=== PATIENT | female | born 1930 | race Caucasian/White ===

== ENCOUNTER 2020-09-10 01:54 | Inpatient (IN) | payer MEDICARE ==
[~2020-09-10] VITALS: Ht 157.5 cm; Wt 69.6 kg
[2020-09-10 02:20] LABS: MEAN CELL VOLUME 84 fl (80.0-100.0); MEAN CORPUSCULAR HGB CONC 31 g/dl (33.0-37.0); MEAN PLATELET VOLUME 10.4 fl (7.4-10.4); PLATELET COUNT 484 K/mm3 (130-400); RED BLOOD COUNT 3.66 M/mm3 (4.10-5.30); REDCELL DISTRIBUTION WIDTH-CV 14.4 % (11.5-14.5)
[2020-09-10 02:30] LABS: ALBUMIN 3.5 gm/dL (3.5-5.0); BILIRUBIN,TOTAL 0.3 mg/dL (0.0-1.0); CALCIUM 8.6 mg/dL (8.4-10.2); CREATININE, serum 2.62 (0.52-1.25)
[2020-09-10 02:31] LABS: HEMATOCRIT 30.9 % (37.0-47.0); HEMOGLOBIN 9.6 g/dl (12.5-16.0); MEAN CORPUSCULAR HEMOGLOBIN 26 pg (27.0-31.0)
[2020-09-10 02:33] LABS: BAND 2 % (0-10); EOSINOPHIL 4 % (0-4); HYPOCHROMIA 2+; LYMPHOCYTE 11 % (20.0-51.0); NEUTROPHILS 76 % (42.0-75.2); PLATELET ESTIMATE INCREASED (NORMAL)
[2020-09-10 02:50] LABS: PROTHROMBIN TIME 10.8 SECONDS (9.7-12.8)
[2020-09-10 02:56] LABS: COLLECTION METHOD CLEAN CATCH
[2020-09-10 03:03] LABS: PH 7 (5-8); SQUAMOUS EPITHELIAL None Seen /hpf; URINE APPEARANCE Clear; URINE BACTERIA None Seen /hpf; URINE BILIRUBIN Negative (NEGATIVE); URINE BLOOD Negative (NEGATIVE); URINE COLOR Straw; URINE GLUCOSE Negative (NEGATIVE); URINE KETONE Negative (NEGATIVE); URINE LEUKOCYTE ESTERASE Negative (NEGATIVE); URINE NITRATE Negative (NEGATIVE); URINE PROTEIN(semi-quant) 2+ (NEGATIVE); URINE RBC 0-2 /hpf; URINE UROBILINOGEN Negative (NEGATIVE)
[2020-09-10] MEDS ORDERED: ASPIRIN 32325 MG/TA1 PO (03:05)
[2020-09-10] MEDS ORDERED: CALCITRIOL (03:08)
[2020-09-10] MEDS ORDERED: CALCIUM WITH D31 CTB (03:10)
[2020-09-10] MEDS ORDERED: CLARITIN 1010 MG/TAB PO (03:10)
[2020-09-10] MEDS ORDERED: COREG 6.256.25 MG/TA PO (03:20)
[2020-09-10] MEDS ORDERED: VITAMIN B11000 MCG/M IM (03:23)
[2020-09-10] MEDS ORDERED: HCTZ12.5TAB PO (03:24)
[2020-09-10] MEDS ORDERED: NATURAL IRON65 MG PO (03:24)
[2020-09-10] MEDS ORDERED: LEVEMIR100 U/ML SQ ×2 (03:26→03:27)
[2020-09-10] MEDS ORDERED: NEURONTIN100 MG/CAP PO (03:27)
[2020-09-10] MEDS ORDERED: NORVASC 10MG10 MG PO (03:28)
[2020-09-10] MEDS ORDERED: NYAMYC100000 U/G TP (03:29)
[2020-09-10] MEDS ORDERED: PRIL40 PO (03:29)
[2020-09-10] MEDS ORDERED: PRAVACHOL10 MG PO (03:30)
[2020-09-10] MEDS ORDERED: SODIUM BICARBO650 MG PO (03:30)
--- NOTE | 2020-09-10 04:12 | NUR ---
PT ARRIVES TO ROOM VIA CART FROM THE ED. HAS FX LEFT HIP. IS ALERT, ORIENTED X2. HAS IVF TO RIGHT FOREARM, INFUSING WITHOUT PROBLEM. HAS SKIN TEAR AND BRUISE TO RIGHT ARM. PLACED PATRICIA TO RT LEG, SCDS TO BOTH. PLACED ON FALL PRECAUTIONS. ZULUAGA TO BSD WITH YELLOW URINE.
[2020-09-10 04:26] VITALS: BP 167/57; PULSE 66; TEMP 97.4
[2020-09-10 07:15] VITALS: BP 165/59; PULSE 68; TEMP 97.5
--- NOTE | 2020-09-10 09:53 | NUR ---
Patient alert and oriented, answers questions appropriately. See assessment. LLE externally rotated and shortened, pulses palpable, no numbness or tingling. Roman catheter in place to dependent drainage, draining clear yellow urine. No c/o at this time.
[2020-09-10 11:41] LABS: CREATININE, serum 2.39 (0.52-1.25)
[2020-09-10 11:42] LABS: MEAN CELL VOLUME 84 fl (80.0-100.0); MEAN CORPUSCULAR HGB CONC 31 g/dl (33.0-37.0); MEAN PLATELET VOLUME 10.8 fl (7.4-10.4); PLATELET COUNT 389 K/mm3 (130-400); RED BLOOD COUNT 3.38 M/mm3 (4.10-5.30); REDCELL DISTRIBUTION WIDTH-CV 14.4 % (11.5-14.5)
[2020-09-10 11:53] LABS: HEMATOCRIT 28.4 % (37.0-47.0); HEMOGLOBIN 8.8 g/dl (12.5-16.0); MEAN CORPUSCULAR HEMOGLOBIN 26 pg (27.0-31.0)
--- NOTE | 2020-09-10 12:37 | NUR ---
Corporate Learning Consultant met with patient to discuss discharge planning. Patient lives at [facility] in [place] and shares a room with her , Ramez. Patient sees Dr. Dave for primary care and states she uses a walker for ambulation. Patient has two sons, Rico (ph#[phone]) and Maxwell (ph#[phone]). Patient plans to return to [facility] upon discharge. KEYLA contacted Selene at and faxed updates. Selene emailed KEYLA a copy of patient's DPOA- paperwork which designates her sons, Rico and Maxwell. 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 KEYLA contacted patient's son, Rico to review discharge plan. Patient to return to upon discharge.
[2020-09-10 13:32] LABS: CREATININE, serum 2.44 (0.52-1.25)
[2020-09-10 13:38] LABS: POTASSIUM 5.8 mmol/L (3.4-5.0)
[2020-09-10 17:28] VITALS: BP 157/64; PULSE 71; TEMP 98
[2020-09-10 20:39] LABS: CALCIUM 7.9 mg/dL (8.4-10.2); CREATININE, serum 2.34 (0.52-1.25); POTASSIUM 5.4 mmol/L (3.4-5.0)
--- NOTE | 2020-09-10 21:30 | NUR ---
Pt. sitting up in bed at this time. Pt. is A&OX3, assessment complete. IV to lt. forearm patent. Pt.'s blood sugar this evening is 211, concerns for giving insulin d/t pt. being npo at in. SHAYAN Conner notified. Decision to hold insulin made. Also informed Dalila that the pt. potassium was still at 5.4. New order received. Pt. denies pain or other needs, call light within reach.
[2020-09-11] VITALS (13 sets, daily range): BP systolic 139–180; BP diastolic 47–75; PULSE 67–99; TEMP 97.4–98.3
[2020-09-11 07:34] LABS: MEAN CELL VOLUME 87 fl (80.0-100.0); MEAN CORPUSCULAR HGB CONC 30 g/dl (33.0-37.0); MEAN PLATELET VOLUME 10.8 fl (7.4-10.4); PLATELET COUNT 342 K/mm3 (130-400); RED BLOOD COUNT 3.34 M/mm3 (4.10-5.30); REDCELL DISTRIBUTION WIDTH-CV 14.3 % (11.5-14.5)
[2020-09-11 07:52] LABS: ALBUMIN 3.1 gm/dL (3.5-5.0); BILIRUBIN,TOTAL 0.3 mg/dL (0.0-1.0); CALCIUM 8.1 mg/dL (8.4-10.2); CREATININE, serum 2.14 (0.52-1.25); POTASSIUM 4.4 mmol/L (3.4-5.0); TOTAL PROTEIN 5.6 gm/dL (6.4-8.2)
[2020-09-11 08:01] LABS: HEMATOCRIT 28.9 % (37.0-47.0); HEMOGLOBIN 8.7 g/dl (12.5-16.0); MEAN CORPUSCULAR HEMOGLOBIN 26 pg (27.0-31.0)
[2020-09-11 09:30] LABS: BAND 6 % (0-10); EOSINOPHIL 2 % (0-4); LYMPHOCYTE 17 % (20.0-51.0); NEUTROPHILS 64 % (42.0-75.2); OVALOCYTES 1+
--- NOTE | 2020-09-11 10:40 | NUR ---
Pt. is resting in bed. Alert and oriented. O2 running at 2L per nasal cannula. Pt. remains NPO. IV to left forearm no redness noted. D5 1/2NS 1000 infusing at 60 ml/hr. Roman cath. in place pericare completed. SCD's on. Pt. has no complaints of pain.
--- NOTE | 2020-09-11 10:52 | NUR ---
KEYLA returned a call to patient's son, Rico who advised he was looking for an update on patient but was able to speak with RN earlier this morning. Patient to have surgery today, time unknown. KEYLA contacted Selene at [facility] to advise that surgery will be today.
--- NOTE | 2020-09-11 12:12 | NUR ---
Patient returns from surgery at 1200.
--- NOTE | 2020-09-11 12:45 | NUR ---
Patient alert and oriented, answers questions appropriately. See assessment. LLE with pulses palpable, no numbness or tingling. LLE shortened and externally rotated. Roman catheter in place, patent, draining clear yellow urine. No c/o at this time.
--- NOTE | 2020-09-11 14:40 | NUR ---
Patient to surgery with surgical staff at this time.
--- NOTE | 2020-09-11 18:58 | NUR ---
Returns from surgery at 1800. Assessment unchanged except LLE with dressing CDI, pulses palpable. No c/o at this time.
--- NOTE | 2020-09-11 20:30 | NUR ---
PT VERY SLEEPY, ROUSES WHEN NAME CALLED. IS ORIENTED X2 AT THIS TIME. TAKES HS MEDS WITH APPLESAUCE. DENIES PAIN AT THIS TIME. ZULUAGA TO BSD WITH YELLOW URINE. IVF TO LEFT FOREARM, NO REDNESS OR SWELLING NOTED. OXYGEN AT 2L/NC. BULKY DRSG TO LEFT HIP.
[2020-09-12 00:28] VITALS: BP 148/55; PULSE 67; TEMP 97.5
[2020-09-12 04:36] VITALS: BP 140/55; PULSE 71; TEMP 97.5
--- NOTE | 2020-09-12 04:50 | NUR ---
REPOSITIONED IN BED WITH 2 ASSIST. ROLLS WELL WITH MINIMAL COMPLAINT OF PAIN TO LEFT HIP. ZULUAGA PATENT. IVF CONTINUE.
[2020-09-12 06:46] LABS: MEAN CELL VOLUME 88 fl (80.0-100.0); MEAN CORPUSCULAR HGB CONC 30 g/dl (33.0-37.0); MEAN PLATELET VOLUME 10.8 fl (7.4-10.4); PLATELET COUNT 271 K/mm3 (130-400); RED BLOOD COUNT 2.94 M/mm3 (4.10-5.30); REDCELL DISTRIBUTION WIDTH-CV 14.2 % (11.5-14.5)
[2020-09-12 06:47] LABS: HEMATOCRIT 25.9 % (37.0-47.0); HEMOGLOBIN 7.7 g/dl (12.5-16.0); MEAN CORPUSCULAR HEMOGLOBIN 26 pg (27.0-31.0)
[2020-09-12 07:08] LABS: CALCIUM 7.9 mg/dL (8.4-10.2); CREATININE, serum 2.03 (0.52-1.25); POTASSIUM 4.5 mmol/L (3.4-5.0)
--- NOTE | 2020-09-12 07:36 | NUR ---
THIS NURSE SPOKE WITH SHAYAN MARRUFO. PATIENTS BLOOD SUGAR THIS MORNING IS 311. PATIENT HAS D5W RUNNING IV. ORDER TO INT FLUIDS AND ENCOURAGE PO FLUIDS.
[2020-09-12 08:15] VITALS: BP 153/55; PULSE 75; TEMP 98.1
--- NOTE | 2020-09-12 09:14 | NUR ---
Initial visit; Patient thanked Preschool Associate Teacher for visiting her and offering prayer and God's blessings.
[2020-09-12 12:00] VITALS: BP 145/51; PULSE 70; TEMP 97.7
--- NOTE | 2020-09-12 13:18 | NUR ---
SHAYAN WELLS NOTIFIED THAT THE PATIENT IS CONFUSED AND REPORTS SEEING THINGS CRAWLING ON THE CEILING. ORDERS TO CONTINUE TO REORIENT THE PATIENT.
--- NOTE | 2020-09-12 15:29 | NUR ---
Sales Incentive Analyst faxed clinical updates to Selene at [facility] and advised discharge will likely be tomorrow. Selene advised they will require a COVID test prior to admit. KEYLA notified SHAYAN Mack.
[2020-09-12 16:47] VITALS: BP 144/63; PULSE 68; TEMP 97.4
--- NOTE | 2020-09-12 17:31 | NUR ---
UPON ENTRY TO THE ROOM THE PATIENT HAD IV PULLED OUT AND SITTING ON THE BEDSIDE TABLE. PATIENT DENIES PAIN AT THIS TIME. ETHERNET NETWORK ARCHITECT BLADDER SCANNING PATIENT POST-ZULUAGA REMOVAL.
--- NOTE | 2020-09-12 18:00 | NUR ---
HOSPITALIST GAVE THE OKAY TO LEAVE IV OUT. PATIENT TO GO TO SKILLED FACILITY TOMORROW.
--- NOTE | 2020-09-12 18:35 | NUR ---
NURSING STAFF WAS ROUNDING. PATIENT REPORTED NEEDING TO USE THE RESTROOM. PATIENT VOIDING POST ZULUAGA REMOVAL.
[2020-09-12 20:10] VITALS: BP 152/59; PULSE 76; TEMP 97.5
--- NOTE | 2020-09-12 20:30 | NUR ---
ASSISTED TO BSC WITH MAX 2 ASSIST/GAIT BELT/WALKER. VOIDS AND BACK TO BED.
--- NOTE | 2020-09-12 21:00 | NUR ---
APPLIED DESENEX POWDER TO REDDENED ABD FOLD. PT IS ALERT, ORIENTED X3. NO IV SITE. HAS AQUACEL DRSG X2 LEFT HIP. RT ARM WITH SKIN TEAR AND BRUISING. DENIES NEEDS AT THIS TIME.
[2020-09-13] VITALS (11 sets, daily range): BP systolic 114–155; BP diastolic 39–95; PULSE 62–83; TEMP 97–98
--- NOTE | 2020-09-13 05:00 | NUR ---
PT USES BEDPAN AND IS ALSO INCONTINENT. REPORTS PAIN TO LEFT HIP. MEDICATED WITH TYLENOL AND OXYCODONE 5MG PO AT THIS TIME.
--- NOTE | 2020-09-13 06:00 | NUR ---
PT YELLING OUT,WANTS TO GO HOME. USES BEDPAN AT THIS TIME.
[2020-09-13 06:52] LABS: MEAN CELL VOLUME 87 fl (80.0-100.0); MEAN CORPUSCULAR HGB CONC 31 g/dl (33.0-37.0); MEAN PLATELET VOLUME 10.9 fl (7.4-10.4); PLATELET COUNT 278 K/mm3 (130-400); RED BLOOD COUNT 2.45 M/mm3 (4.10-5.30); REDCELL DISTRIBUTION WIDTH-CV 14.6 % (11.5-14.5)
[2020-09-13 06:58] LABS: CALCIUM 8.1 mg/dL (8.4-10.2); CREATININE, serum 2.37 (0.52-1.25); POTASSIUM 4.1 mmol/L (3.4-5.0)
[2020-09-13 07:04] LABS: HEMATOCRIT 21.2 % (37.0-47.0); HEMOGLOBIN 6.5 g/dl (12.5-16.0); MEAN CORPUSCULAR HEMOGLOBIN 27 pg (27.0-31.0)
--- NOTE | 2020-09-13 07:05 | NUR ---
CHARGE NURSE ATTEMPTED TO CALL HOSPITALIST TO NOTIY THEM OF CRITICAL HGB OF 6.5 THIS MORNING. NO ANSWER. WILL ATTEMPT AGAIN.
--- NOTE | 2020-09-13 08:22 | NUR ---
NOTIFIED OF HGB RESULT OF 6.5 THIS MORNING. NO ORDERS GIVEN AT THIS TIME.
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
--- NOTE | 2020-09-13 12:07 | NUR ---
DR. ESQUEDA NOTIFIED THAT THE PATIENT IS VERY AGITATED AND YELLING, PATIENT THINKS THAT THE DOCTOR NEVER SAW HER TODAY. DR. ESQUEDA AWARE AND STATES SHE HAS SOME BASELINE DEMENTIA AND SUGGESTED CALLING THE FAMILY. SON MARCIE CALLED AND UPDATED ON PATIENTS STATUS AND DROP IN HEMAGLOBIN REQUIRING A BLOOD TRANSFUSION AND AN ADDITIONAL NIGHT. PATIENT GIVEN PHONE TO TALK WITH SON IN ATTEMPTS TO CALM THE PATIENT DOWN. PATIENT CURRENTLY ON THE PHONE WITH SON MARCIE. STUDENT NURSE UNABLE TO ESTABLISH AN IV SITE. ANAMARIA HICKEY TO ATTEMPT IV START.
--- NOTE | 2020-09-13 12:54 | NUR ---
PATIENT EDUCATED ON BLOOD TRANSFUSION AND POTENTIAL REACTIONS. BLOOD TRANSFUSION STARTED AT 60 ML/HR. VSS. PATIENT RESTING IN BED. THIS NURSE AND STUDENT NURSE PRESENT IN ROOM.
--- NOTE | 2020-09-13 13:09 | NUR ---
PATIENT TOLERATING BLOOD TRANSFUSION WITHOUT ANY ADVERSE REACTIONS. RATE INCREASED FROM 60 ML/HR TO 120ML/HR. NURSE PRESENT AT THE BEDSIDE FOR THE FIRST 15 MINUTES. WILL CONTINUE TO MONITOR.
--- NOTE | 2020-09-13 13:32 | NUR ---
CALLED AND NOTIFIED THAT THE PATIENT HAS HAD SOME DIASTOLIC BLOOD PRESSURES IN THE 40'S, THEY ARE IMPROVING WITH THE BLOOD ADMINISTRATION. TORB TO HOLD OFF ON ADMINISTERING ANY MORE IV PAIN MEDICATIONS OR NARCOTICS AT THIS TIME. THE PHYSICIAN WITH REVIEW BLOOD PRESSURE MEDICATIONS IN CHART.
--- NOTE | 2020-09-13 15:12 | NUR ---
BLOOD TRANSFUSION COMPLETE. PATIENT TOLERATED WELL WITHOUT ANY ADVERSE REACTIONS. VSS. PATIENT RESTING COMFORTABLY IN BED AT THIS TIME.
--- NOTE | 2020-09-13 15:34 | NUR ---
Fumigator And Sterilizer spoke with Hospitalist who advised patient will not discharge today, possibly over the weekend. SW updated Selene at [facility] and faxed clinical updates. SW also contacted patient's son, Rico to provide update.
[2020-09-13 16:28] LABS: HEMATOCRIT 25.2 % (37.0-47.0); HEMOGLOBIN 7.7 g/dl (12.5-16.0)
--- NOTE | 2020-09-13 19:00 | NUR ---
PATIENT IS AGITATED THIS EVENING AND YELLING AT NURSING STAFF. PATIENT STATES THAT SHE WANTS TO GO HOME. MITTS ON. BED ALARM ON. BEDSIDE REPORT GIVEN TO ANAMARIA APPLE.
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
[2020-09-13 22:13] LABS: HEMATOCRIT 27.4 % (37.0-47.0); HEMOGLOBIN 8.8 g/dl (12.5-16.0)
[2020-09-14 07:36] LABS: BASO % 0.4 % (0.0-2.0); EOS # 0.3 (0.0-0.7); EOS % 2.8 % (0-4.0); GRAN # 8.1 (1.4-6.5); GRAN % 74.4 % (42.2-75.2); LYMPH % 8.9 % (20.0-51.0); MEAN CELL VOLUME 88 fl (80.0-100.0); MEAN CORPUSCULAR HGB CONC 31 g/dl (33.0-37.0); MEAN PLATELET VOLUME 10.3 fl (7.4-10.4); MONO # 1.4 (0.1-0.6); MONO % 12.9 % (1.7-9.3); PLATELET COUNT 341 K/mm3 (130-400); REDCELL DISTRIBUTION WIDTH-CV 15.1 % (11.5-14.5)
[2020-09-14 07:39] LABS: HEMATOCRIT 28.2 % (37.0-47.0); HEMOGLOBIN 8.6 g/dl (12.5-16.0); MEAN CORPUSCULAR HEMOGLOBIN 27 pg (27.0-31.0)
[2020-09-14] MEDS ORDERED: ASPIRIN 32325 MG/TA1 PO (07:53)
[2020-09-14 07:55] LABS: CALCIUM 8.1 mg/dL (8.4-10.2); CREATININE, serum 2.22 (0.52-1.25); POTASSIUM 4.3 mmol/L (3.4-5.0)
[2020-09-14] MEDS ORDERED: DULCOLAX S10 MG/SUPP RC (07:55)
[2020-09-14] MEDS ORDERED: SENNA-S 50 MG-81 TAB PO (07:55)
[2020-09-14] MEDS ORDERED: VITAMIN C500 MG PO (07:56)
[2020-09-14] MEDS ORDERED: DUO-KAPS1 CAP PO (07:56)
[2020-09-14] MEDS ORDERED: TYLENOL 325MG325 MG PO (07:57)
[2020-09-14] MEDS ORDERED: NOVOLOG 100U100 U/M1 SQ (07:59)
[2020-09-14] MEDS ORDERED: NORCO 325 MG-51 TAB PO (07:59)
--- NOTE | 2020-09-14 08:00 | NUR ---
Patient in bed, refuses to eat breakfast this AM. Agitated states her leg hurts, medications were given per orders. Aquacell x2 to left hip with minimal drainage present. Pedal pulses intact. SCDs to BLE. INT to left wrist without complications. 2L oxygen via NC. Denies further needs at this time.
[2020-09-14 08:56] VITALS: BP 170/53; PULSE 87; TEMP 98.2
[2020-09-14 10:43] VITALS: BP 170/53; PULSE 87; TEMP 98.2
[2020-09-14] MEDS ORDERED: OXYGEN NASAL.CANN (10:45)
--- NOTE | 2020-09-14 11:28 | NUR ---
Patient out by wheelchair with surgical staff and fransisco meléndez.
--- NOTE | 2020-09-14 11:43 | NUR ---
Patient is discharging to [facility] today 09/14. SW faxed discharge orders and coordinated with [facility] for transportation. SW notified patient's family of discharge. There are no new needs at this time.
== END 2020-09-14 11:30 | disposition home or self-care (01) | DRG 480 ==
LOC: COL.ER 01:54 → SURG 02:50
PROVIDERS: Emergency Medicine; Orthopaedic Surgery; Physician Assistant; Student in an Organized Health Care Education/Training Program; ADMIT Hospitalist
PROC: 0QS736Z Reposition Left Upper Femur with Intramedullary Internal Fixation Device, Percutaneous Approach (ICD-10-PCS; principal; 2020-09-11 15:00)
DX: S72.142A Displaced intertrochanteric fracture of left femur, initial encounter for closed fracture (principal); J96.01 Acute respiratory failure with hypoxia; N18.4 Chronic kidney disease, stage 4 (severe); F05 Delirium due to known physiological condition; E11.649 Type 2 diabetes mellitus with hypoglycemia without coma; E87.6 Hypokalemia; K21.9 Gastro-esophageal reflux disease without esophagitis; I12.9 Hypertensive chronic kidney disease with stage 1 through stage 4 chronic kidney disease, or unspecified chronic kidney disease; E11.22 Type 2 diabetes mellitus with diabetic chronic kidney disease; Z66 Do not resuscitate; E11.42 Type 2 diabetes mellitus with diabetic polyneuropathy; D64.9 Anemia, unspecified; W18.30XA Fall on same level, unspecified, initial encounter; Y93.01 Activity, walking, marching and hiking; Y92.129 Unspecified place in nursing home as the place of occurrence of the external cause; Z90.710 Acquired absence of both cervix and uterus; Z90.49 Acquired absence of other specified parts of digestive tract; Z95.0 Presence of cardiac pacemaker; Z79.82 Long term (current) use of aspirin
CPT/HCPCS: 99223-AI; 99232-AI; 99233-AI; 99239; A9284; C1713; J0690; J1815; J2250; J2270; J2405; J2704; J2795; J3010; J7030; P9016